=== PATIENT | male | born 1965 | race Caucasian/White ===

== ENCOUNTER 2020-03-27 15:28 | Emergency (ER) | payer MEDICAID, SELFPAY ==
[2020-03-27 15:24] VITALS: BP 140/80; PULSE 86; RESP 18; TEMP 36.7; O2SAT 96; BMI 30.5
--- NOTE | 2020-03-27 15:29 | CT_ITS ---
PROCEDURE: CT HEAD/BRAIN WO CON CLINICAL INDICATION: fall/LOC COMPARISON: No exams were available for comparison TECHNIQUE: Axial images obtained. All CT scans at the facility use one or more dose reduction, viz: automated exposure control, ma/kV adjustment per patient size (including targeted exams where dose is matched to indication, i.e. head), or iterative reconstruction technique. FINDINGS: No midline shift, mass effect, intracranial hemorrhage, hydrocephalus, or extra-axial fluid collection is evident. The calvarium has an unremarkable appearance. No mastoid effusion. No sinus air-fluid level. IMPRESSION: No acute intracranial finding Dictated by: Dr. Conner Hicks MD 03/27/2020 16:05 Dr. Conner Hicks MD in [facility] 03/27/2020 16:05
--- NOTE | 2020-03-27 15:29 | CT_ITS ---
PROCEDURE: CT CERVICAL SPINE WO CON CLINICAL INDICATION: fall/LOC COMPARISON: No exams were available for comparison TECHNIQUE: Axial images obtained with sagittal and coronal reformats. All CT scans at the facility use one or more dose reduction, viz: automated exposure control, ma/kV adjustment per patient size (including targeted exams where dose is matched to indication, i.e. head), or iterative reconstruction technique. Axial spiral CT scanning performed of the cervical spine beginning at the base of the skull and continuing to the upper T-spine. 3-D multiplanar reconstruction with 3-D manipulation of volumetric data set in image rendering was completed by the radiologist and/or technologist with the supervision of the radiologist on independent workstation. FINDINGS: No fracture nor subluxation is evident. Normal prevertebral soft tissues. There are osteophytic spurs at the anterior inferior borders of C4, C5 and C6. Facets, neural foramen and vertebral bodies intact and unremarkable. Normal C1/C2 relationships. Apices of lungs are clear with no acute findings. IMPRESSION: Cervical spine intact with no fracture nor subluxation. Dictated by: Dr. Conner Hicks MD 03/27/2020 19:39 Dr. Conner Hicks MD in [facility] 03/27/2020 19:39
--- NOTE | 2020-03-27 15:29 | CT_ITS ---
PROCEDURE: CT LUMBAR SPINE WO CON CLINICAL HISTORY: fall/LOC COMPARISON: No exams were available for comparison TECHNIQUE: Axial images obtained with sagittal and coronal reformats. All CT scans at the facility use one or more dose reduction, viz: automated exposure control, ma/kV adjustment per patient size (including targeted exams where dose is matched to indication, i.e. head), or iterative reconstruction technique. FINDINGS: There is normal curvature and alignment. All lumbar vertebrae appear intact. Disc spaces are well maintained. There is moderate anterior osteophytic spurring at the L1-2, L3-4 and L4-5 levels. There is no abnormal disc protrusion. IMPRESSION: Mild multilevel degenerate changes, no acute pathology noted Dictated by: Dr. Conner Hicks MD 03/27/2020 19:44 Dr. Conner Hicks MD in [facility] 03/27/2020 19:44
--- NOTE | 2020-03-27 15:29 | CT_ITS ---
PROCEDURE: CT THORACIC SPINE WO CON CLINICAL HISTORY: fall/LOC COMPARISON: No exams were available for comparison TECHNIQUE: Axial images obtained with sagittal and coronal reformats. All CT scans at the facility use one or more dose reduction, viz: automated exposure control, ma/kV adjustment per patient size (including targeted exams where dose is matched to indication, i.e. head), or iterative reconstruction technique. FINDINGS: There is normal curvature and alignment. There are mild multilevel degenerate changes with anterior and lateral osteophytic spurring at several levels. 23 there is no abnormal disc protrusion. There is no paraspinal mass. IMPRESSION: Mild multilevel degenerate changes, no acute pathology noted Dictated by: Dr. Conner Hicks MD 03/27/2020 19:42 Dr. Conner Hicks MD in [facility] 03/27/2020 19:42
--- NOTE | 2020-03-27 15:29 | [facility].EDFALL ---
ED Disposition Clinical Impression: Post concussion syndrome Disposition: Home, Self-Care Condition on Discharge: Fair Prescriptions: Cyclobenzaprine HCl [Cyclobenzaprine 5mg Tab] 5 mg PO Q8HP PRN #30 tab PRN Reason: pain/spasm Transmission Status: Pending to [facility] Ketorolac Tromethamine [Toradol 10mg tablet] 10 mg PO Q6H 5 Days #20 tab Transmission Status: Pending to [facility] Referrals: Provider,Referral, MD [Primary Care Provider] - - Critical Care Critical Care Time: No Attestation: On , the high probability of a clinically significant, sudden or life threatening deterioration of the following system(s) required my full and direct attention, intervention and personal management. The time I documented below is in addition to time spent performing reported procedures but includes the following listed in this critical care notation. Medical Decision Making - Medical Records Medical records reviewed: Yes: I reviewed the patient's medical records. - Venk[place] Inquiry Pt receiving controlled substance: No Vital Signs: 03/27/20 15:24 03/27/20 15:40 03/27/20 16:24 Temperature 98.0 F Temperature Source Oral Pulse Rate [Radial] 86 82 78 Respiratory Rate 18 20 20 Blood Pressure [Right Arm] 140/80 168/82 H 116/71 Blood Pressure Mean [Right Arm] 100 110 86 Blood Pressure Source [Right Arm] Automatic Cuff Automatic Cuff Automatic Cuff Blood Pressure Position [Right Arm] Sitting Sitting Sitting 02 Sat by Pulse Oximetry 96 100 97 Oxygen Delivery Method Room Air Room Air 03/27/20 16:32 Temperature Temperature Source Pulse Rate [Radial] 74 Respiratory Rate 20 Blood Pressure [Right Arm] 119/74 Blood Pressure Mean [Right Arm] 89 Blood Pressure Source [Right Arm] Automatic Cuff Blood Pressure Position [Right Arm] Supine 02 Sat by Pulse Oximetry 96 Oxygen Delivery Method Room Air Orders (Tests/Meds): ORDERS Category Date Time Status CT cervical spine wo con Stat Cat Scan 03/27/20 15:[address] lumbar spine wo con Stat Cat Scan 03/27/20 15:[address] thoracic spine wo con Stat Cat Scan 03/27/20 15:29 Taken - CT Data CT Scan: Head, C-Spine, T-Spine, L-Spine Time Received: 16:[address] Reviewed: Yes: I have reviewed the patient's CT results, I have viewed the radiologist's interpretation Preliminary Findings: Normal/NAD Fall HPI - General Chief Complaint: Fall Stated Complaint: fall Time Seen by Provider: 03/27/20 15:30 Mode of Arrival: EMS Source of Information: Patient, EMS Limitations: No Limitations Description of Symptoms (Recalled from ER Triage Doc. by RN): States he was hanging drywall and fell less than four feet. - History of Present Illness HPI Narrative: This is a 54-year-old male who presents via EMS after sustaining fall while on a ladder. Patient did have syncopal episode and remembers only waking up on a backboard. Patient does recall hanging drywall prior to his accident. Only stated complaint currently is low back pain. Pain is aching constant nonradiating and rated at mild to moderate in intensity. He was in his normal state of health prior to his accident. He denies any headache or any focal neurologic deficit no paresthesias or weakness in his limbs or trunk. No nausea or vomiting no dizziness or lightheadedness. - Related Data Previous Rx's Medication Instructions Recorded Cyclobenzaprine HCl 5 mg PO Q8HP PRN #30 tab 03/27/20 [Cyclobenzaprine 5mg Tab] Ketorolac Tromethamine [Toradol 10 mg PO Q6H 5 Days #20 tab 03/27/20 10mg tablet] Allergies Allergy/AdvReac Type Severity Reaction Status Date / Time No Known Allergies Allergy Verified 03/27/20 15:29 [facility] History - Hepatitis A Screen Drug use history?: No High risk sexual behaviors?: No History of sexually transmitted infection?: No Currently employed?: No Childcare worker?: No Do you have indoor plumbing?: Yes Do you have electricity?: Yes At
[2020-03-27 15:40] VITALS: BP 168/82; PULSE 82; RESP 20; O2SAT 100
[2020-03-27 16:24] VITALS: BP 116/71; PULSE 78; RESP 20; O2SAT 97
[2020-03-27 16:32] VITALS: BP 119/74; PULSE 74; RESP 20; O2SAT 96
[2020-03-27 17:02] VITALS: BP 119/74; PULSE 74; RESP 20; TEMP 36.7; O2SAT 96
== END 2020-03-27 17:04 | disposition home or self-care (01) ==
PROVIDERS: Emergency Provider Emergency Medicine; PCP Nurse Practitioner Family
DX: F07.81 Postconcussional syndrome (principal); W11.XXXA Fall on and from ladder, initial encounter; Y92.89 Other specified places as the place of occurrence of the external cause
CPT/HCPCS: 70450; 72125; 72128; 72131; 96372; 99283